=== PATIENT | male | born 1990 | race Caucasian/White ===

== ENCOUNTER 2019-12-02 17:19 | Emergency (ER) | payer OTHER, SELFPAY ==
[2019-12-02 17:35] VITALS: BP 133/74; PULSE 80; RESP 16; TEMP 37.1; O2SAT 100
--- NOTE | 2019-12-02 17:49 | ED.BACK ---
HPI - Back Pain/Injury General Chief Complaint: Back Pain/Injury Stated Complaint: Back Pain Time Seen by Provider: 12/02/19 17:49 Source: patient Mode of arrival: ambulatory Limitations: no limitations History of Present Illness HPI Narrative: Hernandez Bro is a 29 yo male with a history of back pain for 5 years that [facility]-day coverage of tramadol until can get into his primary care physician he saw Drs. Zamarripa and Santos . Patient has right thoracic pain, increased pain with any bending or twisting when sitting up pain is 4 out of 10 Related Data Allergies Allergy/AdvReac Type Severity Reaction Status Date / Time No Known Allergies Allergy Verified 12/02/19 17:23 Review of Systems Review of Systems: Narrative: CONSTITUTIONAL: Denies fever, chills, sweats. EYES: Denies visual changes, redness, discharge. ENT: Denies rhinorrhea, congestion, sore throat, otalgia. CARDIOVASCULAR: Denies chest pain, palpitations, edema. RESPIRATORY: Denies dyspnea, wheezing, cough GASTROINTESTINAL: Denies abdominal pain, nausea, vomiting, diarrhea. GENITOURINARY: Denies dysuria, hematuria, abnormal discharge SKIN: Denies rash or itching. NEUROLOGIC: Denies numbness, or focal weakness. PSYCHIATRIC: Denies anxiety or depression. Back pain after lifting PMFSH Family History Family History Father Family history of liver disease Mother Cerebrovascular accident Grandparent Family history of Alzheimer's disease Social History Social History Smoking status: Never smoker Second hand tobacco smoke exposure: No Alcohol intake: current Gender identity (if verbalized by the patient): Male Comments At time of signature, I agree with nursing past medical, surgical, social and family history. There is no relevant family history pertinent to the presenting complaint. Exam Narrative: Exam Narrative: GENERAL: This is a well-nourished, well-developed patient, in mild distress. HEAD: normocephalic, atraumatic. EYES: Sclera clear/white. Vision is grossly intact. EARS: External ears normal, . Hearing grossly intact. NOSE: External nose normal without nasal discharge, nares without redness, no rhinorrhea. THROAT: Mucous membranes moist, NECK: Neck supple, CARDIOVASCULAR: Regular rate and rhythm without murmurs, gallops, or rubs. RESPIRATORY: Clear to auscultation. Breath sounds equal bilaterally. No wheezes, rales, or rhonchi. GASTROINTESTINAL: Abdomen soft, , SKIN: warm, intact with no suspicious lesions or rash, good texture and turgor. NEURO: awake, alert, and oriented to person, place and time. There were no obvious focal neurologic abnormalities. Steady gait EXTREMITIES: Normal range of motion. BACK:tender R mid thoracic area- without deformity Course Course Emergency Course: Given tramadol 50 mg #15 no refills Patient cautioned that he should not return here for pain medication and to rely on his primary care physician and chiropractor for this Vital Signs Vital signs: Vital Signs Temperature 98.8 F 12/02/19 17:35 Pulse Rate 80 12/02/19 17:35 Respiratory Rate 16 12/02/19 17:35 Blood Pressure 133/74 12/02/19 17:35 Pulse Oximetry 100 12/02/19 17:35 Temperature 98.8 F 12/02/19 17:35 Pulse Rate 80 12/02/19 17:35 Respiratory Rate 16 12/02/19 17:35 Blood Pressure 133/74 12/02/19 17:35 Pulse Oximetry 100 12/02/19 17:35 MDM - Back Pain/Injury Differential Diagnosis Differential diagnosis: Likely lumbar radiculopathy, thoracic back pain and other Discharge Plan Discharge Clinical Impression: Back pain, thoracic Qualifiers: Chronicity: acute Back pain laterality: right Qualified Code(s): M54.6 - Pain in thoracic spine Patient Disposition: Home, Self-Care Condition: Stable Instructions: Back Pain (ED) Prescriptions: New tramadol 50 m
== END 2019-12-02 18:07 | disposition home or self-care (01) ==
PROVIDERS: Emergency Provider Nurse Practitioner; PCP Family Medicine
DX: M54.6 Pain in thoracic spine (principal)
CPT/HCPCS: 99213; G0463

== ENCOUNTER → 2022-09-15 16:00 | Outpatient (CLI) | payer OTHER, SELFPAY ==
--- NOTE | ~2022-09-15 | US_ITS ---
US scrotum doppler INDICATION: Left testicular cyst TECHNIQUE: Testicular sonogram utilizing grayscale and color Doppler FINDINGS: The testes are normal in size and appearance. No focal lesions are seen. The right testes measures 3.2 x 3.4 x 2.5 cm centimeters, and the left testis measures 4.2 x 2.3 x 2.7 cm cm. There is normal vascular flow to both testes. There is a small calcification of the left testicle. There is a 4 mm left epididymal cyst There is no varicocele or hydrocele. IMPRESSION: 1. Small left epididymal cyst measuring 4 mm. Reviewed, dictated and finalized at location B.
== END ==
PROVIDERS: PCP Nurse Practitioner Family; Visit Provider Nurse Practitioner Family
DX: N50.3 Cyst of epididymis (principal)
CPT/HCPCS: 76870; 93976